=== PATIENT | male | born 1955 | race Two or more races ===

== ENCOUNTER 2023-08-01 08:18 | Outpatient (CLI) | payer OTHER | END 2023-08-01 08:35 | disposition home or self-care (01) | LOC: TOM 08:18 | PROVIDERS: ATTEND Internal Medicine Hematology & Oncology | DX: C61 Malignant neoplasm of prostate (principal); C78.1 Secondary malignant neoplasm of mediastinum; R97.0 Elevated carcinoembryonic antigen [CEA] | CPT/HCPCS: 70470; 71270; Q9965 ==

== ENCOUNTER 2023-08-03 17:34 | Inpatient (IN) | payer OTHER ==
[~2023-08-03] VITALS: Ht 167.6 cm; Wt 83.9 kg
[2023-08-03] MEDS ORDERED: MEDROL4 MG (18:07)
[2023-08-03] MEDS ORDERED: 0.9 % SODIUM CHLORIDE 1,000 ML IV STA (22:21)
[2023-08-03 23:25] LABS: HEMOGLOBIN 14.1 g/dL (13-16.00); MEAN CELL VOLUME 88.8 fL (80.0-100.00); MEAN CORPUSCULAR HEMOGLOBIN 29.8 pg (27.00-32.0); MEAN CORPUSCULAR HGB CONC 33.6 g/dl (32.0-36.0); PLATELET COUNT 169 K/uL (150-450); RED BLOOD COUNT 4.73 M/uL (4.00-6.00); RED CELL DISTRIBUTION WIDTH 14.1 % (11.5-14.5)
[2023-08-03 23:45] LABS: BILIRUBIN TOTAL 0.61 mg/dL (0.3-1.2); CALCIUM 9.3 mg/dL (8.5-10.1); CKMB 1.1 NG/ML (0.5-3.6); CREATININE SERUM 1.08 mg/dL (0.70-1.30); D DIMER 19.81 MG/L; GFR 67.99; GLOBULINA 4.1 G/DL (2.4-3.5); PARTIAL THROMBOPLASTIN TIME 27.9 SECONDS (22.0-34.0); POTASSIUM 4.17 mEq/L (3.5-5.1); TOTAL PROTEIN 8.1 gm/dL (6.4-8.2)
[2023-08-03 23:50] LABS: INR 1.21; PROTHROMBIN TIME 12.5 SECONDS (9.0-11.5)
[2023-08-04] MEDS ORDERED: CLOPIDOGREL BISULFATE 75 MG TABLET PO STA (00:45)
[2023-08-04] MEDS ORDERED: NITROGLYCERIN 0.4 MG/HR PATCH.TD24 TD STA (00:45)
[2023-08-04] MEDS ORDERED: ASPIRIN 81 MG TAB.CHEW PO STA (00:46)
[2023-08-04] MEDS ORDERED: RINGERS SOLUTION,LACTATED 1,000 ML IV STA (01:37)
[2023-08-04 02:15] LABS: PH,URINE 5.5 (5.0-8.0); URINE APPEARANCE Clear; URINE BILIRRUBIN Negative (NEGATIVE); URINE BLOOD Trace; URINE COLOR Yellow; URINE GLUCOSE Negative (NEGATIVE); URINE LEUKOCYTE Trace; URINE NITRATE Negative; URINE PROTEIN 30 (NEGATIVE)
[2023-08-04 02:19] LABS: URINE BACTERIA 75.5 uL (0.0-1933); URINE EPITHELIAL CELLS 30.4 uL (0.0-38.8); URINE RBC 13.6 uL (0.0-20.8); URINE WBC 38.4 uL (0.0-23.2)
[2023-08-04] MEDS ORDERED: ASPIRIN 81 MG TAB.CHEW PO SCH (11:04)
[2023-08-04] MEDS ORDERED: ATORVASTATIN CALCIUM 40 MG TABLET PO SCH (11:04)
[2023-08-04] MEDS ORDERED: METOPROLOL SUCCINATE 25 MG TAB.SR.24H PO SCH (11:05)
[2023-08-04] MEDS ORDERED: CLOPIDOGREL BISULFATE 75 MG TABLET PO SCH (11:06)
[2023-08-04] MEDS ORDERED: ENOXAPARIN SODIUM 40 MG/0.4 ML SYRINGE SUBCUTANEO SCH (11:06)
[2023-08-04] MEDS ORDERED: LISINOPRIL 10 MG TABLET PO SCH (11:06)
[2023-08-04] MEDS ORDERED: 0.9 % SODIUM CHLORIDE 1,000 ML IV SCH (16:30)
[2023-08-05 07:27] LABS: HEMATOCRIT 34.5 % (39.0-48.0); HEMOGLOBIN 11.9 g/dL (13-16.00); MEAN CORPUSCULAR HEMOGLOBIN 30.7 pg (27.00-32.0); MEAN CORPUSCULAR HGB CONC 34.5 g/dl (32.0-36.0); PLATELET COUNT 148 K/uL (150-450); RED BLOOD COUNT 3.88 M/uL (4.00-6.00); RED CELL DISTRIBUTION WIDTH 13.7 % (11.5-14.5)
[2023-08-05 07:37] LABS: CALCIUM 8.9 mg/dL (8.5-10.1); CREATININE SERUM 0.9 mg/dL (0.70-1.30); GFR 83.91; POTASSIUM 4.21 mEq/L (3.5-5.1)
[2023-08-05] MEDS ORDERED: CLOPIDOGREL BISULFATE 75 MG TABLET PO SCH (09:00)
[2023-08-05] MEDS ORDERED: METHYLPREDNISOLONE 4 MG TABLET PO SCH ×2 (09:00→11:16)
[2023-08-06] MEDS ORDERED: LISINOPRIL 20 MG TABLET PO SCH (09:00)
[2023-08-06] MEDS ORDERED: DONEPEZIL HCL 10 MG TABLET PO SCH (09:00)
[2023-08-07 05:42] LABS: HEMATOCRIT 36.6 % (39.0-48.0); HEMOGLOBIN 12.5 g/dL (13-16.00); MEAN CELL VOLUME 89.1 fL (80.0-100.00); MEAN CORPUSCULAR HEMOGLOBIN 30.4 pg (27.00-32.0); MEAN CORPUSCULAR HGB CONC 34.1 g/dl (32.0-36.0); PLATELET COUNT 155 K/uL (150-450); RED BLOOD COUNT 4.11 M/uL (4.00-6.00); RED CELL DISTRIBUTION WIDTH 13.5 % (11.5-14.5)
[2023-08-08] MEDS ORDERED: LISINOPRIL 40 MG TABLET PO SCH (09:00)
== END 2023-08-10 20:45 | DRG 66 ==
LOC: ER 17:34 → MEDJ 08-04 12:42 → SEC-K 08-04 12:42 → MEDJ 08-04 13:06
PROVIDERS: Emergency Medicine; Internal Medicine; ADMIT Internal Medicine; ATTEND Internal Medicine
PROC: BW28ZZZ Computerized Tomography (CT Scan) of Head (ICD-10-PCS; principal; 2023-08-03)
PROC: B030Y0Z Magnetic Resonance Imaging (MRI) of Brain using Other Contrast, Unenhanced and Enhanced (ICD-10-PCS; 2023-08-04)
PROC: B246ZZZ Ultrasonography of Right and Left Heart (ICD-10-PCS; 2023-08-04)
PROC: 4A12X4Z Monitoring of Cardiac Electrical Activity, External Approach (ICD-10-PCS; 2023-08-04)
PROC: B343ZZ3 Ultrasonography of Right Common Carotid Artery, Intravascular (ICD-10-PCS; 2023-08-05)
DX: I63.89 Other cerebral infarction (principal); I69.320 Aphasia following cerebral infarction; I10 Essential (primary) hypertension; R41.0 Disorientation, unspecified; C61 Malignant neoplasm of prostate
CPT/HCPCS: 70552

== ENCOUNTER 2023-09-13 20:21 | Emergency (ER) | payer OTHER ==
[~2023-09-13] VITALS: Ht 167.6 cm; Wt 90.7 kg
[~2023-09-13 20:21] MED LIST: MEDROL4 MG
[2023-09-13] MEDS ORDERED: FAMOTIDINE20 MG (20:34)
[2023-09-13] MEDS ORDERED: AMLODIPINE BESY10 MG (20:34)
[2023-09-13] MEDS ORDERED: DONEPEZIL HCL10 MG (20:34)
[2023-09-13] MEDS ORDERED: ATORVASTATIN CA80 MG (20:34)
[2023-09-13] MEDS ORDERED: CLOPIDOGREL BIS75 MG (20:34)
[2023-09-13] MEDS ORDERED: LISINOPRIL20 MG (20:34)
[2023-09-13] MEDS ORDERED: MIRTAZAPINE15 MG (20:35)
[2023-09-13] MEDS ORDERED: METOPROLOL SUCC25 MG (20:35)
[2023-09-13] MEDS ORDERED: CHLORPROMAZINE HCL 25 MG/ML AMPUL IV STA (22:43)
== END 2023-09-14 00:21 | disposition home or self-care (01) ==
LOC: ER 20:21
DX: R06.6 Hiccough (principal); Z88.0 Allergy status to penicillin
CPT/HCPCS: 96365; 99282; J3490